=== PATIENT | female | born 1945 | race Caucasian/White ===

== ENCOUNTER 2016-10-29 06:07 | Inpatient (IN) | payer BC, MEDICARE ==
[~2016-10-29] VITALS: Ht 167.6 cm; Wt 76.4 kg
[~2016-10-29 06:07] MED LIST: CITALOPRAM HBR20 MG PO; LORADAMED10 MG PO; LOSARTAN-HCTZ1 EAC2 PO; MIRALAX17 GM PO; PREMARIN0.625 MG PO; PROAIR HFA8.5 GM INH; PROTONIX 40 MG40 M1 PO; SINGULAIR10 MG PO
[2016-10-30 05:07] LABS: HEMOGLOBIN 12.4 gm/dl (12.3-15.3); RED BLOOD COUNT 4.05 M/UL (4.00-5.10); WHITE BLOOD COUNT 13.3 K/UL (4.5-11.0)
[2016-10-30 05:28] LABS: BUN/CREATININE RATIO 20 (0-10)
[2016-11-01] MEDS ORDERED: ERYTHROMYCIN O3.5 GM OP (11:34)
[2016-11-01] MEDS ORDERED: NORCO 7.5-3251 EACH PO (11:35)
[2016-11-01] MEDS ORDERED: NAPROXEN250 MG PO (11:36)
[2016-11-01] MEDS ORDERED: MIRALAX17 GM PO (11:39)
[2016-11-01] MEDS ORDERED: ARTIFICIAL TEAR15 ML OP (11:43)
[2016-11-01] MEDS ORDERED: MACROBID 100 M100 M1 PO (13:35)
== END 2016-11-01 10:50 | disposition home or self-care (01) | DRG 747 ==
LOC: OR 06:07 → MED SURG 4 15:23 → OR 15:42 → MED SURG 4 15:43
PROVIDERS: Physician Assistant; ADMIT Obstetrics & Gynecology
PROC: 0UUF0JZ Supplement Cul-de-sac with Synthetic Substitute, Open Approach (ICD-10-PCS; 2016-10-29)
PROC: 0TSD0ZZ Reposition Urethra, Open Approach (ICD-10-PCS; 2016-10-29)
PROC: 0TJB8ZZ Inspection of Bladder, Via Natural or Artificial Opening Endoscopic (ICD-10-PCS; 2016-10-29)
PROC: 0USG0ZZ Reposition Vagina, Open Approach (ICD-10-PCS; principal; 2016-10-29 07:45)
DX: N99.3 Prolapse of vaginal vault after hysterectomy (principal); Y83.8 Other surgical procedures as the cause of abnormal reaction of the patient, or of later complication, without mention of misadventure at the time of the procedure; Y76.3 Surgical instruments, materials and obstetric and gynecological devices (including sutures) associated with adverse incidents; N36.41 Hypermobility of urethra; N39.3 Stress incontinence (female) (male); N32.0 Bladder-neck obstruction; N94.10 Unspecified dyspareunia; K21.9 Gastro-esophageal reflux disease without esophagitis; I10 Essential (primary) hypertension; J45.909 Unspecified asthma, uncomplicated; R33.9 Retention of urine, unspecified; H57.11 Ocular pain, right eye; H11.9 Unspecified disorder of conjunctiva; R63.0 Anorexia; F32.9 Major depressive disorder, single episode, unspecified; F41.9 Anxiety disorder, unspecified; Z85.828 Personal history of other malignant neoplasm of skin; Z68.27 Body mass index [BMI] 27.0-27.9, adult; Z79.890 Hormone replacement therapy; Z79.891 Long term (current) use of opiate analgesic; Z79.899 Other long term (current) drug therapy; Z90.722 Acquired absence of ovaries, bilateral; Z90.79 Acquired absence of other genital organ(s); Z98.890 Other specified postprocedural states; Z82.49 Family history of ischemic heart disease and other diseases of the circulatory system; Z83.3 Family history of diabetes mellitus; Z80.8 Family history of malignant neoplasm of other organs or systems
CPT/HCPCS: 36415; 80048; 85027; J0690; J1100; J2270; J2405; J2710; J2795; J3010; J7120